=== PATIENT | female | born 2000 | race Caucasian/White ===

== ENCOUNTER 2024-09-07 08:34 | Observation (INO) ==
--- NOTE | 2024-09-01 12:32 | Anesthesiology Consultation ---
Date of Service September 01, 2024 Assessment & Plan (1) Encounter for pre-operative examination: - Check test AM DOS - Infectious disease screening: Per assessment on 09/01/24: No known recent infectious disease contacts or current infectious disease symptoms. Chart Review Chart Review: Acceptable Risk for Surgery and Patient NOT seen in Pre Admission Testing History Surgery Operation Date: 09/07/24 10:20 Proposed Procedures p Left Ankle Open Reduction Internal Fixation - Norman Gonzales MD Height/Weight Height: 5 ft 4 in Weight: 90.718 kg Allergies Allergy/AdvReac Type Severity Reaction Status Date / Time Sulfa (Sulfonamide Allergy Unknown Unknown Verified 09/01/24 11:21 Antibiotics) Medications Home Medications Medication Instructions Recorded Confirmed Last Taken acetaminophen 500 mg tablet 1,000 mg PO Q6H PRN Pain 09/01/24 09/01/24 Unknown (Acetaminophen Extra Strength) ibuprofen 200 mg tablet 600 mg PO Q6H PRN Pain 09/01/24 09/01/24 Unknown oxycodone 5 mg tablet 5 mg PO Q6H PRN Pain 09/01/24 09/01/24 Unknown Past Medical History Medical History (Updated 09/01/24 @ 12:30 by Fabby Yen) Closed fracture of ankle (08/29/24) Mechanical fall down wet stepts, no head traume Seasonal allergies Past Family History Family History (Updated 09/01/24 @ 11:28 by Janine Aden RN) Other No family history of adverse response to anesthesia Past Surgical History Surgical History (Updated 09/01/24 @ 12:30 by Fabby Yen) H/O wisdom tooth extraction (03/2024) History of anesthesia reaction (2011) Aspirated on vomit while having multiple baby teeth removed > "they stuck a tube down my throat and then I woke up in a hospital" History of open reduction and internal fixation (ORIF) procedure (2016) Right forearm (2 plates and [address]) History of tooth extraction (2011) Multiple baby teeth extraction Social History Smoking Status: Never smoker Do You Dip or Chew Tobacco: No Hx Alcohol Use: No Hx Substance Use: No substance use type: does not use
[~2024-09-07 08:34] MED LIST: ROPIVACAINE 0.5% 5 MG/ML 30 ML VIAL ONE
[2024-09-07] MEDS ORDERED: PROMETHAZINE HCL 6.25 MG in SODIUM CHLORIDE 0.9% 50 ML IV PRN (09:21)
[2024-09-07] MEDS ORDERED: fentaNYL citrate PF 100 MCG/2 ML VIAL IV PRN (09:21)
[2024-09-07] MEDS ORDERED: HYDROmorphone INJ 1 MG/ML SYRINGE IV PRN ×2 (09:21→16:44)
[2024-09-07] MEDS ORDERED: ONDANSETRON INJ 2 MG/ML 2 ML VIAL IV PRN (09:21)
[2024-09-07] MEDS ORDERED: ePHEDrine sulfate 50 MG/ML AMP IV PRN (09:21)
[2024-09-07] MEDS ORDERED: ATROPINE SULFATE 0.1 MG/ML 10ML SYR IV PRN (09:21)
[2024-09-07] MEDS: LR 15ML/HR IV SCH (09:38)
[2024-09-07] MEDS: LACTATED RINGER'S 1,000 ML IV SCH (09:38)
[2024-09-07] MEDS ORDERED: MIDAZOLAM HCL 1 MG/ML 2ML VIAL ONE ×2 (09:50→10:06)
[2024-09-07] MEDS ORDERED: fentaNYL citrate PF 100 MCG/2 ML VIAL ONE ×2 (09:50→11:36)
[2024-09-07] MEDS ORDERED: DexMEDEtomidine HCL IV 100 MCG/ML VIAL IV ONE (10:14)
--- NOTE | 2024-09-07 10:23 | History & Physical Bridge Note ---
Date of Service September 07, 2024 History & Physical Bridge Note I have examined the patient, reviewed the History & Physical and in the interval since the performance of the History & Physical I have noted the following changes of clinical significance: no changes noted
[2024-09-07] MEDS: ceFAZolin 2000MG 2,000 MG/15 ML SYR IV SCH ×2 (10:52→18:47)
[2024-09-07] MEDS ORDERED: ONDANSETRON INJ 2 MG/ML 2 ML VIAL ONE ×2 (11:33→14:00)
[2024-09-07] MEDS ORDERED: LIDOCAINE 2% 2 ML VIAL/AMP(20MG/ML) INFIL ONE (11:33)
[2024-09-07] MEDS ORDERED: PROPOFOL IV EMULSION 10 MG/ML 20 ML VIAL IV ONE (11:33)
[2024-09-07] MEDS ORDERED: DEXAMETHASONE SOD INJ 4 MG/ML VIAL ONE (11:33)
--- OUTSIDE RECORDS SUMMARY | 2024-09-07 12:25 | External Medical Summary | Continuity of Care Document ---
Author Name Unknown Organization [facility] [address] [id number] Address [address] [place], [place] [id number] Encounter [facility] FINNBR [id number] Date(s): 08/31/24 - 08/31/24 [facility] [address] [facility] [address] [facility] Medicine [address] [place] [address], [address] [address] Encounter Diagnosis Fracture dislocation of left ankle(Discharge Diagnosis) - 08/31/24 Bimalleolar fracture of left ankle(Discharge Diagnosis) - 08/31/24 Discharge Disposition: Home or Self Care Attending Physician: MD Gonzales Paul S Referring Physician: MD Gonzales Paul S Allergies, Adverse Reactions, Alerts Substance Criticality Severity Reaction Reaction Severity Status sulfa drugs unknown Active Medications oxyCODONE 5 mg oral tablet Start: 08/31/24 12:56:00 PM EDT, 1 tab, PO, q6h, Disp# 24 tab, Refills: 0, no more than 6 tabs/day, Note to Pharmacy: continued therapy, PRN: as needed for pain, Pharmacy: [id number] Start Date: 08/31/24 Status: Ordered oxyCODONE 5 mg oral tablet take 1 tablet by mouth every 6 hours Start Date: 08/30/24 Status: Ordered Mental Status 08/31/24 Barriers to Learning one year None evide nt Mandatory Health Literacy Documentation Yes Health Literacy Communication Barriers N ever Primary Language Uzbek Problem List Condition Confirmation Course Effective Dates Status Health St [facility] Informant Fracture dislocation of left ankle Confirmed Active Diagnosis Diagnosis Type Effective Dates Health Status Clinical Service Informant Fracture dislocation of left ankle Discharge Diagnosis 08/31/24 Non-Specified Bimalleolar fracture of left ankle Discharge Diagnosis 08/31/24 Non-Specified Vital Signs Most recent to oldest [Reference Range]: 1 Height 163 cm (08/31/24 12:21 PM) Patient Weight 92 kg (08/31/24 12:21 PM) Body Mass Index 34.63 kg/m2 (08/31/24 12:21 PM) Temperature [36.5-37.9 DegC] 36.6 DegC (08/31/24 12:21 PM) Heart Rate 70 bpm (08/31/24 12:21 PM) Blood Pressure 110/60mmHg (08/31/24 12:21 PM) Cuff Pulse Pressure 50 mmHg (08/31/24 12:21 PM) Social History Social History Type Response Smoking Status Never smoked cigaret gonsalo Sex Sex Representation Female (finding) Pre-OP H & P * RENITA Ponce, Anamaria Sandoval: PERFORM Event Display: Pre-OP H & P Authored Date: [id number] Name:JERIRCA SERRATO Patient Number:[id number] :2000 Date of Service:08/31/2024 Chief Complaint L ankle f/u History of Present Illness [id number] yearPastor presents today forleft ankle injury. She was walking a dog on 08/29/2024 at nightwhen she slipped and fell down a single wet stair. She has sprained her right ankle previously, but she has not injured her left ankle previously. She heard a snapping sound as soon as she fell and had pain immediately. She was put into a splint, and has had trouble sleeping due to her pain. She is unable to weight bear on her left leg. She went immediately to the emergency room. She was found to have a left ankle fracture dislocation under conscious sedation underwent a reduction. She has been in a posterior and sugar-tong splint. A CT scan was performed and she was found to have a trimalleolar left ankle fracture. Due to these findings surgical invention was recommended. She agrees to proceed with surgery and she is scheduled for an open reduction internal fixation of her left ankle fracture with Dr. Gonzales on September 07, 2024. Review of Systems Denies any recent cough, cold, fevers, chills or flulike symptoms. She doesget acough occasionally with seasonal allergies.She denies any lightheadedness, dizziness, syncopal episodes, headaches, migraines or seizures. Denies any bleeding or clotting disorders or history of DVT or pulmonary embolism. Denies any recent hospitalizations. Denies any history of metal sensitivity, latex allergy or MRSA. Denies any shortness of breath or chest pain. Denies abdominal pain, heartburn, indigestion, nausea, vomiting, diarrhea or constipation. Denies any urinary tract infections. Denies any hearing or vision changes. Denies any dental problems. Physical Exam Vitals & Measurements T:36.6C HR:70(Monitored) BP:110/60 SpO2:98% HT:163cm WT:92.000kg(Dosing) WT:92kg BMI:34.63 BMI:34.63 kg/m2 Vitals:Last Updated 08/31/24 12:21 Date Temp BP Location Pulse RR SpO2 Pain 08/31/24 36.6 110/60 70 98 08/31/24 2 08/30/24 7 Height and Weight:Last Updated 08/31/24 12:21 Date BMI Wt(kg) Wt(lb) Method Ht(cm) (ft-in) Method 08/31/24 34.63 92 202 Standing Scale 163 5-4 General:Well-dressed, well-nourished. Normal mood and affect. Alert and oriented x3. HEENT:Head: Atraumatic, normocephalic. Eyes: Extraocular movements intact, pupils equal round and reactive to light, sclera normal. Ears: Ears grossly normal, TMs are clear normal light reflex.Nose: Nares are patent bilaterally. Throat: Oropharynx clear mucous membranes moist good dentition uvula midline. Neck:Supple, no lymphadenopathy, nontender palpation, full range of motion. Cardiac:Regular rate and rhythm, normal S1, S2. No murmurs, rubs or gallops appreciated. Lungs:Clear to auscultation bilaterally. No adventitious sounds. No accessory muscle use. Abdomen:Soft, nontender, nondistended, normal bowel sounds heard in all 4 quadrants. Extremities: Focusing on the patient'sLEFTlower extremity: Numbness on the dorsal aspect of the big toe, otherwise intact sensation Unable to activate dorsiflexion orplantarflexion Faintly able to extend toes Achilles intact 1+DP and1+PT pulses Tenderness on the lateral border of the foot No blistering Swelling is mild to moderate, mostly lateral Bruising into the lateral foot Anteromedial abrasion 1cm in diameter. Diagnostic Results I reviewed 2 views of the left ankle and tib fib pre and post reduction done at [facility] on 08/29/2024 which shows a fracture of the fibula and the back of the tibia, and another tibia fracture. Trimalleolar ankle fracture. CT foot LT wo con, CT ankle LT wo con IMPRESSION: Trimalleolar fractures are seen. There is surrounding soft tissue stranding. Assessment/Plan 1.Fracture dislocation of left ankle 2.Bimalleolar fracture of left ankle Patient is scheduled for an open reduction internal fixation of her left ankle fracture with Dr. Gonzales on 09/07/2024. Risks and complications of the procedure were explained to the patient and include but are not limited to infection, pain, bleeding, scarring, nerve and blood vessel damage, wound problems, weakness, stiffness, incomplete relief of symptoms, hardware failure, malunion, nonunion, arthritis, blood clots, embolisms, heart attack, stroke and . All questions were answeredand informed consent was obtained. She does not need any preoperative laboratory work, EKG or medical clearance prior to surgery. She most likely will stay overnight at [facility] for observation. She has crutches and was also given a prescription for a knee scooter for postoperative use. Encouraged ice and elevation frequently until surgery. She needs to remain nonweightbearing left lower extremity. She was given a prescription for oxycodone for pain. She is actually been taking this consistently and needed a refill prior to surgery. She most likely will need a refill at time of discharge from the hospital. She will be out of work for 6 to 12 weeks aftersurgery. A note was provided today. She will follow-up 5 to 7 days after her procedure for dressing change. She would like to attend outpatient physical therapy closer to home. All questions were answered today. She knows to call with any further problems, questions or concerns. This chart was completed utilizing [employer] voice recognition software. Grammatical errors, random word insertions, pronoun errors, and in complete sentences are an occasional consequence of the system. Any questions or concerns about the content, text, or information contained within the body of this dictation should be addressed directly to the provider for clarification. Problem List/Past Medical History Ongoing Fracture dislocation of left ankle Seasonal allergies Seasonal depression Procedure/Surgical History ORIF Right forearm Stafford teeth Medications Home oxyCODONE(oxyCODONE 5 mg oral tablet), 5 mg= 1 tab, PO, q6h, PRN Tylenol PRN Advil PRN Allergies sulfa drugsunknown Social History Denies any tobacco, alcohol or recreational drug use. She is employed full- time. She is going to live with her mom during her recovery. She does have crutches for use after surgery. Family History Reviewed and noncontributory. Electronic Signature on File Electronically Reviewed/Signed by: Anamaria Ponce PA-C Author Signature Dt/Tm:08/31/2024 01:28PM Division of Sports Medicine Electronically Reviewed/Signed by: Norman Gonzales MD Cosigner Signature Dt/Tm: 08/31/2024 04:06 PM Division of Sports Medicine [facility] Ortho Outpt Note * Stephanietasha Yanet: PERFORM, MODIFY MD Janet, Norman Ochoa: MODIFY Event Display: Ortho Outpt Note Authored Date: [id number] Name:JERRICA SERRATO Patient Number:[id number] :2000 Date of Service:08/31/2024 CHIEF COMPLAINT: Follow-up left ankle injury and CT review HPI: [id number] Norris presents today forcontinued evaluation ofher left ankle. Patient initially injured her ankle on 08/29/2024 during a slip and fall. She does have numbness in her big toe. She has remained nonweightbearing and elevates and ices for swelling and pain. She is taking oxycodone for pain DIAGNOSTIC REVIEW: Review of CT scan of the leftfoot was negative for fracture. CT scan of the left ankle which shows a fibular fracture, posterior malleolar fracture with a small comminuted fragment and extends intothe medial malleolar in the coronal plane. IMPRESSION: Left ankle bimalleolar fracture and fracture dislocation PLAN: Recommend surgery which would include internal fixation. Discussed risks, benefits, procedure, and rehabilitation. Surgical consent obtained for displacedleft ankle bimalleolar fracture open reduction and internal fixation. Current plan for surgery on 09/07/2024 at [facility]. Continue nonweightbearing, elevate for swelling as this may postpone surgery Follow-up as scheduled for surgery and post-operative appointments. Discussed postoperative plan.May include nonweightbearing. Discussed possible syndesmotic fixation. ATTESTATION: IYanet, scribing for and in the presence of, Norman Gonzales, on this date,1:57:32. Electronic Signature on File Electronically Reviewed/Signed by: Yanet Shanks Author Signature Dt/Tm:08/31/2024 12:43 PM Electronically Reviewed/Signed by: Norman Gonzales MD Cosigner Signature Dt/Tm: 08/31/2024 04:10 PM Division of Sports Medicine [place]
--- OUTSIDE RECORDS SUMMARY | 2024-09-07 12:25 | External Medical Summary | Continuity of Care Document ---
Author Name Unknown Organization [facility] [address] [id number] Address [address] [place], [place] [id number] Encounter [facility] FINNBR [id number] Date(s): 08/30/24 - 08/30/24 [facility] [address] [facility] [address] [facility] Sports Medicine [address] [place] [address], [address] [address] Encounter Diagnosis Fracture dislocation of left ankle(Discharge Diagnosis) - 08/30/24 Discharge Disposition: Home or Self Care Attending Physician: MD Gonzales Paul S Allergies, Adverse Reactions, Alerts Substance Criticality Severity Reaction Reaction Severity Status sulfa drugs unknown Active Assessment and Plan Extracted from: Title:Norman Gonzales Author:Serjio Gonzalez te:08/30/24 IMPRESSION: 24 year old fema le with possibletrimalleolar ankle fracturedislocation PLAN: CT scan of the foot and ankle was ordered for the patient. RICE. Foot above heart, ice 10-15 minutes. Remain nonweightbearing. The patient has elected to proceed with surgical interventionat this time, which will most likely be this Friday or next week. Patient was educated about surgical procedure, and treatment options were discussed, as well as risks, benefits and the recovery process. The patient hasno issues withbleeding, blood clots, staph infections or MRSA. We can discuss the patient's surgery timeline more after she gets her CT scan. Follow up after the CT scan is completed. Medications oxyCODONE 5 mg oral tablet Start: 08/31/24 12:56:00 PM EDT, 1 tab, PO, q6h, Disp# 24 tab, Refills: 0, no more than 6 tabs/day, Note to Pharmacy: continued therapy, PRN: as needed for pain, Pharmacy: [id number] Start Date: 08/31/24 Status: Ordered oxyCODONE 5 mg oral tablet take 1 tablet by mouth every 6 hours Start Date: 08/30/24 Status: Ordered Mental Status 08/30/24 Barriers to Learning one year None evide nt Mandatory Health Literacy Documentation Yes Health Literacy Communication Barriers N ever Primary Language German Problem List Condition Confirmation Course Effective Dates Status Health St [facility] Informant Fracture dislocation of left ankle Confirmed Active Diagnosis Diagnosis Type Effective Dates Health Status Clinical Service Informant Fracture dislocation of left ankle Discharge Diagnosis 08/30/24 Non-Specified Social History Social History Type Response Smoking Status Never smoked cigaret gonsalo Sex Sex Representation Female (finding) Ortho Outpt Note * Serjio Gonzalez: PERFORM, MODIFY, MODIFY MD Janet, Norman Ochoa: MODIFY Event Display: Ortho Outpt Note Authored Date: [id number] Chief Complaint Left ankle injury History of Present Illness [id number] yearoldFemalewho presents today forleft ankle injury. She was [...] had trouble sleeping due to her pain. Review of Systems A 14 point review of systems is available in the EMR. Physical Exam Focusing on the patient'sLEFTlower extremity: Calf nontender. Tenderness of thelateral ankle. Numbness on the dorsal aspect of the big toe, otherwise intact sensation Unable to activateankle dorsiflexion orplantarflexion Faintly able to flexandextend toes Achilles intactpalpably 1+DP and1+PT pulses Tenderness on the lateral border of the foot No blistering Swelling is mild to moderate, mostly lateralankle Bruising into the lateral foot Anteromedial abrasion 1cm in diameter. Diagnostic Results I reviewed 2 views of the left ankle and tib fib pre and post reduction done at [facility] on 08/29/2024 which shows a fracture of the fibula and the back of the tibia, and another tibia fracture. Trimalleolar ankle fracture. Posterior subluxation Assessment/Plan IMPRESSION: 24 year old female with possibletrimalleolar ankle fracturedislocation PLAN: CT scan of the foot and ankle was ordered for the patient. Foot above heart, ice 10-15 minutes. Remain nonweightbearing. The patient has elected to proceed with surgical interventionat this time, which will most likelybe this Friday or next week. Patient was educated about surgical procedure, and treatment options were discussed, as well as risks, benefits and the recovery process. The patient hasno issues withbleeding, blood clots, staph infections or MRSA. We can discuss the patient's surgery timeline more after she gets her CT scan. Follow up after the CT scan is completed. Attestation I, Serjio Gonzalez, have scribed for, and in the presence of, Norman Gonzales, on this date,08/30/2024 11:24:20. Recommendations Health Maintenance Pending(in the next year) OverDue Adult Influenza Vaccine due05/30/24and every 1year Due Adult Folic Acid Supplementation due08/30/24and every 3year Satisfied(in the past 1 year) There are no satisfied recommendations within the defined date range Electronic Signature on File Electronically Reviewed/Signed by: Serjio Gonzalez Author Signature Dt/Tm:08/30/2024 12:06 PM Electronically Reviewed/Signed by: Norman Gonzales MD Cosigner Signature Dt/Tm: 08/31/2024 04:28 PM Division of Sports Medicine [place]
--- OUTSIDE RECORDS SUMMARY | 2024-09-07 12:25 | External Medical Summary | Continuity of Care Document ---
Author Name Unknown Organization [facility] [address] [id number] Address [address] [place], [place] [id number] Encounter [facility] [id number] Date(s): 08/30/24 - 08/30/24 [facility] [address] [facility] [address] [facility] Sports Medicine [address] [place] [address], [address] [address] Encounter Diagnosis Fracture dislocation of left ankle(Discharge Diagnosis) - 08/30/24 Discharge Disposition: Home or Self Care Attending Physician: RENITA Ponce Jennifer R Allergies, Adverse Reactions, Alerts Substance Criticality Severity Reaction Reaction Severity Status sulfa drugs unknown Active Assessment and Plan Extracted from: Title:Clinical Document Author:RENITA Ponce, Warren Sandoval Date:08/30/24 ORTHOPAEDICS OUTPATIENT NOTE Name: JERRICA SERRATO Patient Number: [id number] : 2000 Date of Service: 08/30/2024 HPI: Patient was seen and evaluated today by Dr. Gonzales. Please see his note from today for further details regarding today's visit. I was asked to place her in a posterior and sugar-tong splint of her left lower extremity. A fiberglass splint was applied. Well-padded. Instructed to keep it on at all times and clean and dry. Nonweightbearing left lower extremity. Continue use of crutches and/or wheelchair. Follow-up as instructed by Dr. Goznales. She understands and agrees with the plan. Medications oxyCODONE 5 mg oral tablet Start: 08/31/24 12:56:00 PM EDT, 1 tab, PO, q6h, Disp# 24 tab, Refills: 0, no more than 6 tabs/day, Note to Pharmacy: continued therapy, PRN: as needed for pain, Pharmacy: [facility] #[id number] Start Date: 08/31/24 Status: Ordered oxyCODONE 5 mg oral tablet take 1 tablet by mouth every 6 hours Start Date: 08/30/24 Status: Ordered Problem List Condition Confirmation Course Effective Dates Status Health St [facility] Informant Fracture dislocation of left ankle Confirmed Active Diagnosis Diagnosis Type Effective Dates Health Status Clinical Service Informant Fracture dislocation of left ankle Discharge Diagnosis 08/30/24 Social History Social History Type Response Smoking Status Never smoked cigaret gonsalo Sex Sex Representation Female (finding) Ortho Outpt Note * RENITA Ponce, Anamaria Sandoval: PERFORM Event Display: Ortho Outpt Note Authored Date: [id number] ORTHOPAEDICS OUTPATIENT NOTE Name: JERRICA SERRATO Patient Number: [id number] : 2000 Date of Service: 08/30/2024 HPI: Patient was seen and evaluated today by Dr. Gonzales. Please see his note from today for further details regarding today's visit. I was asked to place her in a posterior and sugar-tong splint of her left lower extremity. A fiberglass splint was applied. Well-padded. Instructed to keep it on at all times and clean and dry. Nonweightbearing left lower extremity. Continue use of crutches and/or wheelchair. Follow-up as instructed by Dr. Gonzales. She understands and agrees with the plan. Electronic Signature on File Electronically Reviewed/Signed by: Anamaria Ponce PA-C Author Signature Dt/Tm:08/30/2024 02:56PM Division of Sports Medicine Electronically Reviewed/Signed by: Norman Gonzales MD Cosigner Signature Dt/Tm: 08/30/2024 05:40 PM Division of Sports Medicine [facility]
[2024-09-07] MEDS ORDERED: HYDROmorphone INJ 2 MG/ML SYR/VIAL ONE (12:51)
[2024-09-07] MEDS ORDERED: KETOROLAC 30 MG/ML VIAL ONE (12:51)
[2024-09-07] MEDS ORDERED: NEOSTIGMINE METHYLSULFATE 1 MG/ML 10ML VIAL ONE (14:04)
[2024-09-07] MEDS ORDERED: GLYCOPYRROLATE 0.2 MG/ML VIAL ONE (14:04)
[2024-09-07] MEDS: VANCOMYCIN HCL 1000MG/20ML VIAL ONE (14:17)
[2024-09-07] MEDS ORDERED: DROPERIDOL 5 MG/2 ML VIAL ONE (14:28)
--- NOTE | 2024-09-07 14:37 | Operative Report ---
Post Operative Report Pre & Post Diagnosis Operation Date: 09/07/24 10:20 Pre-Op Diagnosis: Displaced Bimalleolar Fracture of Left Lower Leg, Lateral and posterior malleolus Post-Op Diagnosis: Same I identified the patient and participated in the time-out.: Yes Procedure Operation Date: 09/07/24 10:20 Actual Procedures p Left Ankle Open Reduction Internal Fixation of Lateral and Posterior Fracture(Left) - Norman Gonzales MD Surgeon Norman Gonzales MD Cutting Table Operator First Tom White DO, fellow. Anamaria Ponce physicians video library assistant Estimated Blood Loss 5 Findings Consistent with Post-Op Diagnosis Specimens None Anesthesia Type General Regional Complications none Disposition Accompanied Patient To Recovery: No Disposition: Recovery Room Indications Mera is 24 years old. Approximately 8 days ago she fell and injured her left ankle. She has a displaced distal fibular fracture. Bright B type. There is also a large posterior malleoli are fracture which extends across to the medial malleolus. Surgical treatment consisting of ORIF was recommended and she agreed to proceed. Description of Procedure Informed consent. Patient identified. She identified the procedure site as the left ankle. I marked with my initials. A preoperative surgical timeout performed. A preop dose of IV antibiotics was given. She was taken to the operating room positioned prone after administration of the anesthetic. A tourniquet was applied to the left thigh. Chest rolls were utilized. The arms were held in physiologic abduction with the elbows below the level of the shoulders bony prominences were inspected and padded. The operative leg was elevated in hip extension with several blankets and then the foot was positioned on bone foam. The leg was shaved and then prescrubbed and then prepped and draped in the usual sterile fashion. DVT prophylaxis with mechanical devices intraoperatively. Postoperatively mobility aspirin and mechanical devices. When in the holding area the leg was inspected and found to have skin wrinkles. Yellowish bruising. Moderate swelling but no blistering. There was a petechial hemorrhagic type rash over the lateral foot. Fluoroscopic guidance was utilized about surgical procedure Limb exsanguinated with the Esmarch. Tourniquet inflated to 250 mmHg. Approximate 15 cm incision was made at the posterior border of the fibula. The skin was sharply incised and blunt dissection was utilized to elevate down into the subcutaneous tissues. Full-thickness flap was created elevating anterior to the level of the anterior fibula. Hemorrhage was noted. Subperiosteal exposure of the distal fibula was performed. The fracture site was opened cleaned of hematoma and reduced with a alligator clamp. I then incised the fascia just posterior to the peroneal musculature. This gained access to the posterior compartment. Perforating vessels were electrocauterized. I then incised the deep fascia longitudinally and then identified the flexor hallucis longus muscle. The posterior tibia was palpated and the FHL was elevated up off of the posterior tibia. Retractors were inserted taking care to be on bone. [employer] and [employer]. The fracture was identified. The periosteum was then incised and the fracture margins were exposed. The fracture was fixed displaced slightly posterior and slightly proximal. I dissected over to the medial extent of the fracture which was more proximal. I used a dental pick and dorsiflexion of the ankle to manipulate the fracture back into anatomical alignment and held it there with a K wire. Fluoroscopic images were then obtained to demonstrate the alignment and reduction which was anatomic. I then took a 3 hole nonlocking plate and positioned it on the posterior tibia. The plate was flipped upside down to have the appropriate trajectory for inserting screws. A guidepin was inserted distally and laterally. An additional guidewire was placed proximally to hold the plate in position. Care was taken at all times with retraction. There was a large soft tissue envelope to retract posteromedially to gain access. Soft tissues were kept moist throughout the surgical procedure. Guidepin was found to be in good position parallel to the joint and outside of it. It was advanced to the far cortex. A 3.5 mm bicortical screw was inserted in the middle hole of the shaft to approximate the plate to the bone. This provided compression through the plate. It was later exchanged for a shorter screw. A 3.5 mm cannulated screw 2 mm less than what was measured was then inserted after over drilling the near cortex. A second 3.5 mm cannulated screw was inserted medially. Multiplanar fluoroscopy was utilized to assess position of plate and screws. An additional bicortical 3.5 millimeter screw was inserted in the proximal hole of the plate. The articular surface was anatomic the plate was in good position. I then turned my attention to the fibula. The knee was flexed and a lag screw was inserted from proximal anterior to distal posterior across the fracture site. A 3.5 mm bicortical lag screw. Good purchase and stability. This was then neutralized with an 8 hole one third tubular locking plate. It was pre- bent and then affixed to the shaft of the fibula proximally with a cortical screw. 2 unicortical screws were inserted distally. 2 bicortical screws were inserted proximally. Fluoroscopic images confirmed anatomical alignment and positioning of the hardware. The syndesmosis was stressed and found to be stable. The posterior inferior tibiofibular ligaments were visualized to the posterior approach and they were found to be intact. The sural nerve was not encountered. The tourniquet was let down during the fixation of the distal fibula. Meticulous hemostasis was performed. A gram of vancomycin was split equally between the posterior lateral portions. Prior to that copious irrigation was performed. The muscles were allowed to close over posteriorly. On the lateral side the distal half of the plate was covered over with periosteum using 0 Vicryl. The skin was then closed with 3-0 Vicryl and telma. The leg was cleaned wet and dry sponges a saw sterile dressing was applied Xeroform 4 x 4's ABD soft wrap and a posterior splint with ankle neutral position. Patient was then awakened from anesthesia without difficulty and taken back to the recovery room in stable condition. There were no specimens or complications. Counts were correct and blood loss is estimated to be 5 cc. At the conclusion of the operation I spoke the patient's mother informed her my findings. Postop instructions were discussed. She will be admitted to the hospital and stay overnight. She will have PT. Postop antibiotics. Aspirin for DVT prophylaxis. She will be nonweightbearing on the injured limb for at least 6 weeks. On the fluoroscopic image there was a subtle minimal double density sign on the medial malleolus. The ankle mortise and syndesmosis were intact. I attest to the content of the Intraoperative Record and any orders documented therein. Any exceptions are noted below.
--- NOTE | 2024-09-07 14:46 | Operative Report ---
Post Operative Report Pre & Post Diagnosis Operation Date: 09/07/24 10:20 Pre-Op Diagnosis: Displaced Bimalleolar Fracture of Left Lower Leg Post-Op Diagnosis: Displaced Bimalleolar Fracture of Left Lower Leg I identified the patient and participated in the time-out.: Yes Procedure Operation Date: 09/07/24 10:20 Actual Procedures p Left Ankle Open Reduction Internal Fixation of Lateral and Posterior Bimalleolar Fracture(Left) - Norman Gonzales MD Surgeon Norman Gonzales MD Landscape Supervisor Tom White DO, fellow. Anamaria Ponce physicians malt specifications control assistant Estimated Blood Loss 5 Findings Consistent with Post-Op Diagnosis Specimens None Description of Procedure Patient was brought to the operative suite she was placed in the prone position after undergoing anesthesia. Left lower extremity was prepped and draped in usual sterile fashion. A surgical timeout was performed. Patient underwent left ankle open reduction internal fixation, please see Dr. Gonzales's operative report for full details. I was present assisted with limb positioning, soft tissue retraction, hardware placement, wound closure, postoperative dressing and splint placement. Patient was awakened and taken to the recovery room in stable condition. I attest to the content of the Intraoperative Record and any orders documented therein. Any exceptions are noted below.
--- NOTE | 2024-09-07 14:48 | Fluoroscopy Report ---
INTRAOPERATIVE RADIOGRAPHS CLINICAL HISTORY: Open reduction and internal fixation of left ankle fractures. Fluoro time: 70 seconds Ka,r: 1.36 mGy FINDINGS: 5 spot fluoroscopic views of the left ankle are correlated with radiographs dated 08/29/2024 . There has been buttress plate fixation of a comminuted fracture of the distal fibula, as well as bu ttress plate fixation along the dorsal aspect of the distal tibia transfixing a posterior malleolar f racture. Numerous cortical lag screw transfix both buttress plates. The orthopedic hardware appears i ntact. Near-anatomic alignment is restored. Overlying soft tissue edema is noted. IMPRESSION: Intraoperative images from open reduction and internal fixation of distal tibial and fibu lar fractures. Electronically signed by: Durga Carrillo M.D. 09/07/2024 2:47 PM
--- NOTE | 2024-09-07 15:43 | Anesthesiology Progress Note ---
Date of Service September 07, 2024 Anesthesia Post Procedure Vital Signs Vital Signs: Temp Pulse Resp BP Pulse Ox O2 Del Method O2 Flow Rate 09/07/24 15:25 80 12 118/76 96 Oxymask 4 09/07/24 15:15 93 H 15 141/79 H 98 Oxymask 4 09/07/24 15:05 70 12 110/67 99 Oxymask 6 09/07/24 14:55 85 12 111/55 L 99 Oxymask 6 09/07/24 14:48 36.2 C L 73 13 118/62 99 Oxymask 10 09/07/24 09:16 36.8 C 109 H 20 135/82 97 Room Air Pain Intensity Left Ankle: Pain Intensity: 3 Transfer of Care Handoff Completed per policy Notes Mental Status: alert / awake / arousable and participated in evaluation Patient Amnestic to Procedure: Yes Nausea / Vomiting: adequately controlled Pain: adequately controlled Airway Patency, RR, SpO2: stable & adequate BP & HR: stable & adequate Hydration State: stable & adequate Anesthetic Complications: no major complications apparent and Pt Satisfied with anesthetic care
[2024-09-07] MEDS ORDERED: HYDROmorphone INJ 0.5 MG/0.5 ML SYR IV PRN (16:44)
[2024-09-07] MEDS ORDERED: METOCLOPRAMIDE HCL INJ 5 MG/ML 2 ML VIAL IV PRN (16:44)
[2024-09-07] MEDS ORDERED: oxyCODONE HCL IR 5 MG TAB (IMMEDIATE RELEASE) PO PRN (16:44)
[2024-09-07] MEDS ORDERED: NALOXONE HCL 0.4 MG/1 ML VIAL/CARP IV PRN (16:44)
[2024-09-07] MEDS ORDERED: MAGNESIUM HYDROXIDE SUSP 30 ML UDC PO PRN (16:44)
[2024-09-07] MEDS ORDERED: bisacodyL 10 MG SUPP PR PRN (16:44)
[2024-09-07] MEDS ORDERED: diphenhydrAMINE 50 MG/ML VIAL IV PRN (16:44)
[2024-09-07] MEDS: SODIUM CHLORIDE 0.9% 1,000 ML IV SCH (16:56)
--- NOTE | 2024-09-07 18:12 | Orthopedic Progress Note ---
Date of Service September 07, 2024 Assessment & Plan (1) Ankle fracture, bimalleolar, closed: Plan: Findings discussed. The nerve block is still working. Her circulation is intact. Do not bear weight. Elevate the leg. We discussed the pain control regimen. Admission and Anticipated Discharge Date Admission Date: September 07, 2024 Subjective Doing well. The block is still working. Her foot is still numb. Results of surgery discussed Physical Exam Physical Exam: She can faintly wiggle her toes. Capillary refills less than 2 seconds. The foot is numb throughout. DP pulses 1+ Results & Data Vital Signs (Past 12 Hours) Vital Signs Temp Pulse Pulse Resp BP Pulse Ox O2 Del Method 09/07/24 17:41 36.9 C 90 14 115/74 95 Room Air 09/07/24 17:14 37 C 104 H 17 121/78 94 Room Air 09/07/24 16:45 37.5 C 108 H 17 122/81 93 Room Air 09/07/24 16:15 97 H 116/72 95 Room Air 09/07/24 16:00 97 H 15 118/73 93 Room Air 09/07/24 15:45 37.3 C 94 H 14 125/76 93 Room Air 09/07/24 15:35 97 H 16 130/80 93 Room Air 09/07/24 15:25 80 12 118/76 96 Oxymask 09/07/24 15:15 93 H 15 141/79 H 98 Oxymask 09/07/24 15:05 70 12 110/67 99 Oxymask 09/07/24 14:55 85 12 111/55 L 99 Oxymask 09/07/24 14:48 36.2 C L 73 13 118/62 99 Oxymask 09/07/24 09:16 36.8 C 109 H 20 135/82 97 Room Air O2 Flow Rate 09/07/24 17:41 09/07/24 17:14 09/07/24 16:45 09/07/24 16:15 09/07/24 16:00 09/07/24 15:45 09/07/24 15:35 09/07/24 15:25 4 09/07/24 15:15 4 09/07/24 15:05 6 09/07/24 14:55 6 09/07/24 14:48 10 09/07/24 09:16
[2024-09-07] MEDS: SENNA 8.6 MG TAB PO SCH (21:29)
[2024-09-07] MEDS: DOCUSATE SODIUM 100 MG CAP PO SCH (21:29)
[2024-09-07] MEDS: ACETAMINOPHEN 500 MG TAB PO SCH (21:29)
[2024-09-07] MEDS: ACETAMINOPHEN 1,000 MG/100 ML VIAL IV PRN (23:09)
[2024-09-08] MEDS: ONDANSETRON INJ 2 MG/ML 2 ML VIAL IV PRN (02:35)
[2024-09-08 07:16] VITALS: BP 106/71; PULSE 82; RESP 18; TEMP 97.9; O2SAT 96
[2024-09-08] MEDS: ASPIRIN 325 MG ECTAB PO SCH (08:40)
[2024-09-08] MEDS: MULTIVITAMIN TAB PO SCH (08:40)
--- NOTE | 2024-09-08 10:13 | Orthopedic Progress Note ---
Date of Service September 08, 2024 Assessment & Plan (1) Ankle fracture, bimalleolar, closed: Plan: Patient is status post open reduction internal fixation of her left ankle fracture with Dr. Gonzales on 09/08/2024. She may be out of bed with the assistance of a walker or crutches. Nonweightbearing left lower extremity at all times. Encouraged ice to left ankle as needed for pain and swelling. Encouraged elevation above heart to relieve pain and swelling. Regular diet has been ordered and she is tolerating this well. Aspirin 325 mg was started today for DVT prophylaxis. Mom states she is unable to swallow pills very well so we will change that as an outpatient to a baby aspirin chewable tablet twice daily. Oxycodone as needed for pain. She does have medicine at home. Follow-up as scheduled as an outpatient for dressing change in the next 3 to 5 days as scheduled. Call with any problems, questions or concerns. Discharge instructions were reviewed and all questions were answered today. Plan to discharge to home today. Admission and Anticipated Discharge Date Admission Date: September 07, 2024 Subjective Patient is resting in bed. No significant pain of her left ankle. She is elevated on 3-4 pillows. She states that the splint does not feel too tight. She would like to go home today and get into her "own bed". She does feel that the toes and foot are still numb and tingly. Physical Exam Musculoskeletal: Exam of her left lower extremity: Dr. Gonzales present for today's visit. The left leg is elevated on 3-4 pillows. The splint is clean, dry and intact. Her toes are not edematous. She is able to gently flex her toes but not able to extend. She is unable to extend her ankle. She has diminished sensation across the dorsum of her foot. Mild edema of the midfoot. Dorsalis pedis pulse is not palpable today but it is dopplerable. The foot is warm. There is discoloration from the cleansing agent use preoperatively. Capillary refill is brisk. Results & Data Vital Signs (Past 12 Hours) Vital Signs Temp Pulse Resp BP Pulse Ox O2 Del Method 09/08/24 07:16 36.6 C 82 18 106/71 96 Room Air 09/08/24 03:53 36.7 C 102 H 16 101/65 98 Room Air 09/07/24 23:14 36.7 C 101 H 16 114/76 97 Room Air Diagnostic Findings Intraoperative x-rays were reviewed with the patient. Shows a well aligned fractures and intact hardware.
--- NOTE | 2024-09-08 10:17 | Discharge Summary ---
Date of Service September 08, 2024 Discharge Data Procedures Performed Operation Date: 09/07/24 10:20 Actual Procedures p Left Ankle Open Reduction Internal Fixation of Lateral and Posterior Bimalleolar Fracture(Left) - Norman Gonzales MD Hospital Course (1) Ankle fracture, bimalleolar, closed: Patient was kept in observation at [facility] after undergoing an elective open reduction internal fixation of her left ankle fracture with Dr. Gonzales on September 07, 2004. Her surgery was performed with general anesthesia and a peripheral nerve block. She tolerated the procedure well without any intraoperative complications. Intraoperative x-ray showed good alignment of the fracture and reduction with intact hardware without any complications. She was allowed out of bed, nonweightbearing on her left lower extremity at all times. Use crutches or walker to assist with ambulation. She was placed in a posterior splint which was left in place. Regular diet was provided. Her home medications were continued and she was given Tylenol, oxycodone and IV Dilaudid to use for postoperative pain control. We did switch to IV Tylenol because she had trouble swallowing Tylenol tablets. She was started on aspirin 325 mg on postoperative day 1 for DVT prophylaxis. This will be switched to a chewable aspirin 81 mg tablet twice a day at discharge. Encouraged ice and elevation. Encouraged her to do range of motion of her knee, hip and toes as tolerated. She was seen and evaluated by physical therapy and Occupational Therapy. She was deemed safe for discharge to home. She was discharged to her home in stable condition on September 07, 2024. Discharge instructions were reviewed. Follow-up appointment as scheduled. All questions were answered today.
== END 2024-09-08 11:48 | disposition home or self-care (01) ==
LOC: ASU 08:34 → 3W 08:34
DX: F41.9 Anxiety disorder, unspecified; Y93.K1 Activity, walking an animal; W10.9XXA Fall (on) (from) unspecified stairs and steps, initial encounter; S82.842A Displaced bimalleolar fracture of left lower leg, initial encounter for closed fracture; Z88.2 Allergy status to sulfonamides

== ENCOUNTER 2025-08-30 07:32 | Inpatient (IN) ==
[2025-08-30] MEDS ORDERED: OXYTOCIN 30 UNITS/NSS 30 UNITS/500 ML BAG IV PRN (08:01)
[2025-08-30] MEDS ORDERED: LIDOCAINE 1% LOCAL 20 ML VIAL INFIL PRN (08:01)
[2025-08-30 08:45] LABS: Hematocrit (blood only) 34.3 % (37.0-47.0); Hemoglobin 11.3 g/dl (12.0-16.0); Mean Corpuscular Hemoglobin 25.6 pg (25.0-34.0); Mean Corpuscular Volume 77.8 fL (80.0-100.0); Platelet Count 146 K/uL (130-400); RDW Standard Deviation 45.9 fL (36.4-46.3); Red Blood Count 4.41 M/uL (4.20-5.40); White Blood Count 10.45 K/ul (4.8-10.8)
--- NOTE | 2025-08-30 10:42 | History & Physical Report ---
Date of Service August 30, 2025 Assessment & Plan (1) Post-dates : Plan: Cervical ripening with Cervidil planned Admission and Anticipated Discharge Date Admission Date: August 30, 2025 History of Present Illness Chief Complaint: induction of labor Primary Care Provider: Norman Leiva MD 25 F P0000 at 40.2 weeks admitted for induction of labor for post-dates. GBS is negative. Allergies Allergy/AdvReac Type Severity Reaction Status Date / Time Sulfa (Sulfonamide Allergy Unknown Unknown Verified 08/07/25 16:20 Antibiotics) latex AdvReac Rash Verified 08/07/25 16:21 Home Medications Medication Instructions Recorded Confirmed Type prenat.vits,riana,dod-xqer-chudg 1 tab PO DAILY 08/07/25 08/30/25 History vitamin P77-bqsom acid 2.5 mg-0.8 1 tab PO DAILY 08/07/25 08/30/25 History mg oral sublingual tablet Patient History Medical History Seasonal allergies Closed fracture of ankle (08/29/24) Mechanical fall down wet stepts, no head traume Surgical History History of anesthesia reaction (2011) Aspirated on vomit while having multiple baby teeth removed > "they stuck a tube down my throat and then I woke up in a hospital" History of tooth extraction (2011) Multiple baby teeth extraction History of open reduction and internal fixation (ORIF) procedure (2016) Right forearm (2 plates and [address]) H/O wisdom tooth extraction (03/2024) Family History Other No family history of adverse response to anesthesia Social History Smoking Status: Never smoker Second Hand Exposure: No; Do You Dip or Chew Tobacco: No; Hx Alcohol Use: No Hx Substance Use: No Preferred Language: [place] Communication Ability: Effective Labor Relations Representative Required: No Beliefs That Will Affect Care: None marital status: Single Current Living Situation: Family Current Living Situation Comment: Pt lives with her brother Other Information That Helps Us Care for You: No Feels Safe at Home: Yes Safety Concerns: Feels Safe At This Time Assistive Devices: Glasses OB History primip Review of Systems All systems reviewed & are unremarkable except as noted in HPI & below Physical Exam Constitutional: WD/WN, vitals as above Eyes: PERRL, conjunctivae normal, anicteric sclerae Neck: trachea midline, no thyromegaly Respiratory: normal respiratory effort Cardiovascular: Rate/Rhythm: regular rate and regular rhythm Gastrointestinal (Abdomen): Inspection/Auscultation: abdomen normal to inspection Musculoskeletal: Extremities: extremities normal to inspection Skin: no rashes, warm and dry Neurologic: patellar DTR's 2+ bilat, sensation intact Psychiatric: A+Ox3, euthymic affect Genitourinary: no vaginal lesions, no adnexal mass OB Exam Abdomen: + fundal height and + vertex Manual OB Exam: + cervical dilation fingertip, + cervical effacement 50% and + station -2 OB Exam Monitor Tracing: + external FHT monitor used, + external uterine monitor used, + category I and + normal FHT variability exam by nurse since patient would not allow me to examine her. Will start with Cervidil for ripening of cervix. Results & Data Vital Signs (Past 12 Hours) Vital Signs Temp Pulse Resp BP O2 Del Method 08/30/25 09:41 91 H 113/72 08/30/25 08:41 90 115/73 08/30/25 07:50 36.8 C 105 H 18 123/83 Room Air 08/30/25 07:41 105 H 123/83 Laboratory Results 08/30/25 08:21 WBC 10.45 RBC 4.41 Hgb 11.3 L Hct 34.3 L MCV 77.8 L MCH 25.6 MCHC 32.9 RDW Std Deviation 45.9 RDW Coeff of Melissa 16.2 H Plt Count 146 MPV 11.0 Treponema pallidum Ab Negative Blood Type A Positive Antibody Screen NEGATIVE Code Status & VTE Plan VTE Prophylaxis Plan VTE Prophylaxis will be ordered: No Monitoring External Monitor Cat 1 (1) Post-dates Post-term type: 40-42 weeks gestation Qualified Code(s): O48.0 - Post-term
[2025-08-30] MEDS: DINOPROSTONE 10 MG INSERT PV ONE (11:10)
--- NOTE | 2025-08-30 11:17 | Labor Progress Brief Note ---
Date of Service August 30, 2025 Assessment & Plan Admission and Anticipated Discharge Date Admission Date: August 30, 2025 Physical Exam Genitourinary: OB Exam Monitor Tracing: + external FHT monitor used, + external uterine monitor used, + category I and + normal FHT variability Cervidil 10 mg placed vaginally Results & Data Vital Signs (Past 12 Hours) Vital Signs Temp Pulse Resp BP O2 Del Method 08/30/25 10:50 91 H 121/74 08/30/25 09:41 91 H 113/72 08/30/25 08:41 90 115/73 08/30/25 07:50 36.8 C 105 H 18 123/83 Room Air 08/30/25 07:41 105 H 123/83
[2025-08-30] MEDS: LACTATED RINGER'S 1,000 ML IV PRN (16:03)
[2025-08-30] MEDS ORDERED: BUTORPHANOL TARTRATE 1 MG/ML VIAL IV PRN (18:42)
[2025-08-31] MEDS: miSOPROStoL 50 MCG TAB PO SCH (00:10)
[2025-08-31] MEDS ORDERED: LIDOCAINE 2%/EPINEPHRINE 1:200,000 20 ML PF ONE ×2 (01:18→15:37)
[2025-08-31] MEDS ORDERED: NALOXONE HCL 1 MG in SODIUM CHLORIDE 0.9% 1,000 ML IV PRN (01:45)
[2025-08-31] MEDS ORDERED: ROPIVACAINE 0.5% PF 5 MG/ML 20 ML VIAL EPI PRN (01:45)
[2025-08-31] MEDS ORDERED: diphenhydrAMINE 50 MG/ML VIAL IV PRN ×2 (01:45→16:58)
[2025-08-31] MEDS ORDERED: LIDOCAINE 2% MPF LOCAL 5 ML VIAL EPI PRN (01:45)
[2025-08-31] MEDS ORDERED: LIDOCAINE 2%/EPINEPHRINE 1:200,000 20 ML PF EPI STA (01:45)
[2025-08-31] MEDS ORDERED: BUPIVACAINE 0.25% PF 30 ML VIAL EPI PRN (01:45)
[2025-08-31] MEDS ORDERED: NALOXONE HCL 0.4 MG/1 ML VIAL/CARP IV PRN ×2 (01:45→17:00)
[2025-08-31] MEDS ORDERED: NALBUPHINE HCL INJ 10 MG/ML AMP IV PRN ×2 (01:45→16:58)
[2025-08-31] MEDS ORDERED: SODIUM CHLORIDE 0.9% PF INJ 10 ML VIAL EPI PRN (01:45)
--- NOTE | 2025-08-31 01:47 | Anesthesiology Consultation ---
Date of Service August 31, 2025 Assessment & Plan Chart Review Chart Review: Patient NOT seen in Pre Admission Testing and Acceptable Risk for Labor Epidural Consults Requested none ASA ASA2 Proposed Anesthesia Anesthesia Type: Labor Epidural Risk / Benefits Reviewed With: PT / POA / Parent / Guardian, Accepts Plan and Informed Consent Obtained History Height/Weight Height: 5 ft 4 in Weight: 102.512 kg Allergies Allergy/AdvReac Type Severity Reaction Status Date / Time Sulfa (Sulfonamide Allergy Unknown Unknown Verified 08/07/25 16:20 Antibiotics) latex AdvReac Rash Verified 08/07/25 16:21 Medications Home Medications Medication Instructions Recorded Confirmed Last Taken prenat.vits,riana,her-qeos-twbjz 1 tab PO DAILY 08/07/25 08/30/25 08/29/25 18:30 vitamin S08-toifj acid 2.5 mg-0.8 1 tab PO DAILY 08/07/25 08/30/25 08/29/25 18:30 mg oral sublingual tablet Active Medications Generic Name Dose Route Start Last Admin Trade Name Freq PRN Reason Stop Dose Admin Lactated Ringer's 1,000 mls @ 125 mls/hr 08/30/25 08:01 08/31/25 01:36 Lr IV 09/01/25 08:00 999 mls/hr .Q8H PRN Administration L&D Protocol Protocol Misoprostol 50 mcg 08/31/25 00:00 08/31/25 00:10 Misoprostol 50 Mcg Tab PO 09/30/25 00:00 Not Given Q4 BRADLY NPO Date Last Intake of Fluids: 08/31/25 Time Last Intake of Fluids: 01:00 Date Last Intake of Solids: 08/30/25 Time Last Intake of Solids: 18:30 Past Medical History Medical History Seasonal allergies Closed fracture of ankle (08/29/24) Mechanical fall down wet stepts, no head traume Exercise / Class Metabolic Activity 1 > 8 Run/Swim/Ski/Tennis Past Family History Family History Other No family history of adverse response to anesthesia Past Surgical History Surgical History History of anesthesia reaction (2011) Aspirated on vomit while having multiple baby teeth removed > "they stuck a tube down my throat and then I woke up in a hospital" History of tooth extraction (2011) Multiple baby teeth extraction History of open reduction and internal fixation (ORIF) procedure (2016) Right forearm (2 plates and [address]) H/O wisdom tooth extraction (03/2024) Past Anesthesia History No Hx of Anesthesia Complications and No Family Hx of Anesthesia Complications History of PONV No Hx of PONV and No Hx of Motion Sickness Social History Smoking Status: Never smoker Do You Dip or Chew Tobacco: No Hx Alcohol Use: No Alcohol Intake Frequency Comment: Pt states prior to she had "the very occasional drink" Hx Substance Use: No substance use type: does not use Review of Systems ROS Unobtainable: All systems reviewed & are unremarkable except as noted in HPI & below Physical Exam Vital Signs Last Vital Signs Temp 37.0 C 08/30/25 22:14 Pulse 77 08/31/25 01:02 Resp 16 08/30/25 22:14 BP 115/56 L 08/31/25 01:02 O2 Del Method Room Air 08/30/25 07:50 ENMT Mouth: no TMJ abnormality Thyromental Distance: > or= 3.5 Finger Breadths Mallampati Class: II Neck normal visual inspection and trachea midline; neck extension not limited Respiratory normal respiratory effort Auscultation: lungs clear to auscultation bilaterally Cardiovascular Rate/Rhythm: regular rate and regular rhythm Heart Sounds: no murmur Musculoskeletal Spine: normal cervical ROM Extremities: full ROM of extremities Neurologic moves all extremities Psychiatric Orientation: alert and oriented x 3 Testing Laboratory Results 08/30/25 08:21 Blood Type A Positive 08/30/25 08:21 Antibody Screen NEGATIVE 08/30/25 08:21
[2025-08-31] MEDS: fentANYL 2 MCG/ML BUPIVacaine 0.125%-NSS 100ML BAG ONE (02:08)
[2025-08-31] MEDS: BUPIVACAINE 0.25% PF 30 ML VIAL EPI STA (02:15)
[2025-08-31] MEDS: SODIUM CHLORIDE 0.9% PF INJ 10 ML VIAL EPI STA (02:17)
[2025-08-31] MEDS: SODIUM CHLORIDE 0.9% PF INJ 10 ML VIAL ONE (08:15)
[2025-08-31] MEDS: BUPIVACAINE 0.25% PF 30 ML VIAL ONE (08:15)
--- NOTE | 2025-08-31 10:05 | Obstetrical Progress Note ---
Date of Service August 31, 2025 Assessment & Plan Admission and Anticipated Discharge Date Admission Date: August 30, 2025 Subjective patient seen and examined. She was admitted yesterday by Dr. Vizcaino for induction of labor for postdates. She has received a dose of vaginal Cervidil Yesterday and then 1 dose of p.o. Cytotec at 3 AM. she became painful and received epidural for pain. She has been comfortable with no complaints. She feels baby moves off and on. I reviewed her records and medical history with her. Vaginal exam cervix is 2 cm dilated, 70% effaced, head is high ballotable with a tight bag, tried stimulate the head and heart rate increased from 130s to 145, heart rate had been between category 1 to category 2 responded to IV fluid hydration, I performed bedside ultrasound, vertex presentation confirmed, facing up, indicating occipitoposterior, EFW is, although limited due to BMI and edema of abdominal skin, 3440 g, placenta anterior, OFELIA is 8.5 cm, Discussed the findings and recommended oxytocin challenge test for being testing, if baby tolerates oxytocin and contractions we will continue with induction if not then we will proceed with primary , Patient understands all and agrees with plan, Continue to monitor closely. Results & Data Vital Signs (Past 12 Hours) Vital Signs Temp Pulse Resp BP Pulse Ox O2 Del Method 08/31/25 10:00 95 H 118/83 08/31/25 09:56 80 94 08/31/25 09:51 80 95 08/31/25 09:46 94 H 96 08/31/25 09:45 92 H 112/73 08/31/25 09:41 89 97 08/31/25 09:36 71 94 08/31/25 09:31 73 94 08/31/25 09:30 76 106/57 L 08/31/25 09:26 71 94 08/31/25 09:21 74 94 08/31/25 09:16 69 94 08/31/25 09:15 69 105/57 L 08/31/25 09:11 75 94 08/31/25 09:06 70 94 08/31/25 09:01 72 16 94 08/31/25 09:00 71 104/57 L 08/31/25 08:56 75 93 08/31/25 08:51 72 94 08/31/25 08:46 78 94 08/31/25 08:45 75 107/58 L 08/31/25 08:41 69 94 08/31/25 08:36 74 95 08/31/25 08:31 72 94 08/31/25 08:30 72 103/58 L 08/31/25 08:26 71 94 08/31/25 08:21 68 94 08/31/25 08:16 71 94 08/31/25 08:15 69 108/60 08/31/25 08:11 75 94 08/31/25 08:06 70 93 08/31/25 08:01 69 94 08/31/25 08:00 69 16 108/59 L 08/31/25 07:56 72 94 08/31/25 07:51 69 93 08/31/25 07:46 70 106/62 94 08/31/25 07:41 68 94 08/31/25 07:36 72 94 08/31/25 07:31 71 95 08/31/25 07:30 71 107/61 08/31/25 07:26 72 96 08/31/25 07:24 Room Air 08/31/25 07:21 77 95 08/31/25 07:16 76 117/64 96 08/31/25 07:11 78 95 08/31/25 07:06 81 96 08/31/25 07:03 18 08/31/25 07:03 37.1 C 18 08/31/25 07:01 84 96 08/31/25 07:00 79 123/81 08/31/25 06:56 73 95 08/31/25 06:51 74 95 08/31/25 06:46 74 96 08/31/25 06:45 84 117/69 08/31/25 06:41 83 95 08/31/25 06:36 83 94 08/31/25 06:32 80 128/74 08/31/25 06:31 79 92 08/31/25 06:26 86 95 08/31/25 06:21 88 95 08/31/25 06:16 86 96 08/31/25 06:15 37.0 C 75 16 104/63 08/31/25 06:11 74 93 08/31/25 06:06 73 94 08/31/25 06:01 73 93 08/31/25 06:00 75 94/52 L 08/31/25 05:56 71 94 08/31/25 05:51 75 93 08/31/25 05:46 95 08/31/25 05:46 75 08/31/25 05:46 71 92/54 L 08/31/25 05:41 81 93 08/31/25 05:36 74 94 08/31/25 05:31 94 08/31/25 05:31 75 08/31/25 05:31 70 93/53 L 08/31/25 05:26 74 94 08/31/25 05:21 71 94 08/31/25 05:16 72 94 08/31/25 05:15 71 97/56 L 08/31/25 05:11 66 94 08/31/25 05:06 68 93 08/31/25 05:02 70 100/57 L 08/31/25 05:01 67 94 08/31/25 04:56 68 94 08/31/25 04:51 69 94 08/31/25 04:46 71 95 08/31/25 04:45 64 103/58 L 08/31/25 04:41 68 94 08/31/25 04:36 75 96 08/31/25 04:31 69 95 08/31/25 04:30 70 102/61 08/31/25 04:26 66 94 08/31/25 04:21 67 95 08/31/25 04:16 67 94 08/31/25 04:15 63 99/56 L 08/31/25 04:12 75 100/64 08/31/25 04:11 76 95 08/31/25 04:06 84 95 08/31/25 04:01 69 93 08/31/25 04:00 72 97/55 L 08/31/25 03:56 66 93 08/31/25 03:51 68 93 08/31/25 03:46 68 93 08/31/25 03:45 70 102/58 L 08/31/25 03:41 68 93 08/31/25 03:36 70 93 08/31/25 03:31 69 93 08/31/25 03:30 69 96/53 L 92 08/31/25 03:26 69 93 08/31/25 03:21 65 93 08/31/25 03:16 69 94 08/31/25 03:15 74 98/57 L 08/31/25 03:11 76 96 08/31/25 03:06 85 95 08/31/25 03:01 73 93 08/31/25 03:00 36.8 C 71 16 100/55 L 08/31/25 02:56 73 94 08/31/25 02:51 71 93 08/31/25 02:46 76 93 08/31/25 02:45 75 103/58 L 94 08/31/25 02:43 73 124/73 08/31/25 02:41 73 95 08/31/25 02:39 78 94 08/31/25 02:36 83 95 08/31/25 02:31 104 H 96 08/31/25 02:26 92 H 95 08/31/25 02:25 86 94 08/31/25 02:21 93 H 95 08/31/25 02:20 93 H 94 08/31/25 02:16 91 H 95 08/31/25 02:11 96 H 120/69 95 08/31/25 02:08 95 H 95 08/31/25 02:07 91 H 94 08/31/25 02:06 86 121/71 08/31/25 02:04 88 123/73 08/31/25 02:03 90 96 08/31/25 01:58 102 H 96 08/31/25 01:53 96 H 97 08/31/25 01:02 77 115/56 L 08/31/25 00:50 16 08/31/25 00:50 37.0 C 16 08/30/25 22:14 16 08/30/25 22:14 37.0 C 08/30/25 22:12 74 120/81
[2025-08-31] MEDS: OXYTOCIN 30 UNITS/NSS 30 UNITS/500 ML BAG IV PRN (10:18)
[2025-08-31] MEDS: fentANYL 2 MCG/ML BUPIVacaine 0.125%-NSS 100ML BAG EPI PRN (11:02)
[2025-08-31] MEDS ORDERED: LACTATED RINGER'S 1,000 ML IV SCH ×3 (15:30→17:45)
--- NOTE | 2025-08-31 15:30 | Obstetrical Progress Note ---
Date of Service August 31, 2025 Assessment & Plan Admission and Anticipated Discharge Date Admission Date: August 30, 2025 Subjective Patient has been comfortable. heart rate tolerated the Pitocin initially, recently had an episode of deceleration on the patient's right side, recovered on the patient left side having mild late decelerations with some of the contractions, category 2 strip. cervix is 2 to 3 cm, 80% effaced, head is -3 with a tight bulging bag, Discussed the findings category 2 strip removed from delivery recommended primary . Patient understands C section is a major surgery, with risks including but not limited to bleeding , infection, injury to surrounding organs like bowels, bladder, ureters, adhesions, scarring, wound infection, blood cloths in legs/ lungs, longer recovery. All questions were answered. She signed an informed consent. Results & Data Vital Signs (Past 12 Hours) Vital Signs Temp Pulse Resp BP Pulse Ox O2 Del Method 08/31/25 15:26 83 95 08/31/25 15:21 89 96 08/31/25 15:16 104 H 97 08/31/25 15:15 71 113/65 08/31/25 15:11 71 93 08/31/25 15:06 68 93 08/31/25 15:01 37.5 C 68 18 93 08/31/25 15:00 67 116/68 08/31/25 14:56 69 94 08/31/25 14:51 74 95 08/31/25 14:47 70 118/74 08/31/25 14:46 71 94 08/31/25 14:43 78 92 08/31/25 14:41 73 93 08/31/25 14:36 72 92 08/31/25 14:35 75 92 08/31/25 14:31 93 H 95 08/31/25 14:30 75 121/76 08/31/25 14:26 73 93 08/31/25 14:21 76 93 08/31/25 14:16 73 94 08/31/25 14:15 74 124/79 08/31/25 14:11 75 94 08/31/25 14:06 75 93 08/31/25 14:01 18 08/31/25 14:01 18 08/31/25 14:01 94 08/31/25 14:01 77 08/31/25 14:01 71 120/70 08/31/25 13:56 74 93 08/31/25 13:51 78 93 08/31/25 13:46 85 94 08/31/25 13:45 82 120/72 08/31/25 13:41 80 93 08/31/25 13:36 79 95 08/31/25 13:31 94 08/31/25 13:31 89 08/31/25 13:31 75 119/71 08/31/25 13:27 74 92 08/31/25 13:26 70 93 08/31/25 13:21 71 96 08/31/25 13:16 81 95 08/31/25 13:15 76 121/73 08/31/25 13:11 80 96 08/31/25 13:06 77 95 08/31/25 13:01 79 95 08/31/25 13:00 75 20 119/73 08/31/25 12:56 87 95 08/31/25 12:51 84 96 08/31/25 12:46 94 08/31/25 12:46 80 08/31/25 12:46 82 120/76 08/31/25 12:41 78 95 08/31/25 12:36 71 93 08/31/25 12:31 79 95 08/31/25 12:30 74 118/73 08/31/25 12:26 73 93 08/31/25 12:21 68 93 08/31/25 12:19 66 92 08/31/25 12:16 79 94 08/31/25 12:15 65 111/64 08/31/25 12:13 65 92 08/31/25 12:11 73 94 08/31/25 12:06 69 93 08/31/25 12:01 67 18 94 08/31/25 12:00 74 116/67 08/31/25 11:56 77 95 08/31/25 11:51 75 93 08/31/25 11:46 94 08/31/25 11:46 73 08/31/25 11:46 71 128/68 08/31/25 11:41 79 94 08/31/25 11:36 79 95 08/31/25 11:31 82 95 08/31/25 11:30 77 128/79 08/31/25 11:26 79 96 08/31/25 11:21 79 95 08/31/25 11:16 81 94 08/31/25 11:15 80 109/65 08/31/25 11:11 78 94 08/31/25 11:06 79 95 08/31/25 11:02 18 08/31/25 11:02 36.8 C 18 08/31/25 11:01 89 96 08/31/25 11:00 85 116/69 08/31/25 10:56 91 H 95 08/31/25 10:51 79 94 08/31/25 10:46 78 94 08/31/25 10:45 76 115/70 08/31/25 10:41 77 95 08/31/25 10:36 83 95 08/31/25 10:31 88 95 08/31/25 10:30 86 113/71 08/31/25 10:26 79 95 08/31/25 10:21 89 95 08/31/25 10:16 91 H 96 08/31/25 10:15 96 H 120/77 08/31/25 10:11 83 94 08/31/25 10:06 84 95 08/31/25 10:01 98 H 20 95 08/31/25 10:00 95 H 118/83 08/31/25 09:56 80 94 08/31/25 09:51 80 95 08/31/25 09:46 94 H 96 08/31/25 09:45 92 H 112/73 08/31/25 09:41 89 97 08/31/25 09:36 71 94 08/31/25 09:31 73 94 08/31/25 09:30 76 106/57 L 08/31/25 09:26 71 94 08/31/25 09:21 74 94 08/31/25 09:16 69 94 08/31/25 09:15 69 105/57 L 08/31/25 09:11 75 94 08/31/25 09:06 70 94 08/31/25 09:01 72 16 94 08/31/25 09:00 71 104/57 L 08/31/25 08:56 75 93 08/31/25 08:51 72 94 08/31/25 08:46 78 94 08/31/25 08:45 75 107/58 L 08/31/25 08:41 69 94 08/31/25 08:36 74 95 08/31/25 08:31 72 94 08/31/25 08:30 72 103/58 L 08/31/25 08:26 71 94 08/31/25 08:21 68 94 08/31/25 08:16 71 94 08/31/25 08:15 69 108/60 08/31/25 08:11 75 94 08/31/25 08:06 70 93 08/31/25 08:01 69 94 08/31/25 08:00 69 16 108/59 L 08/31/25 07:56 72 94 08/31/25 07:51 69 93 08/31/25 07:46 70 106/62 94 08/31/25 07:41 68 94 08/31/25 07:36 72 94 08/31/25 07:31 71 95 08/31/25 07:30 71 107/61 08/31/25 07:26 72 96 08/31/25 07:24 Room Air 08/31/25 07:21 77 95 08/31/25 07:16 76 117/64 96 08/31/25 07:11 78 95 08/31/25 07:06 81 96 08/31/25 07:03 18 08/31/25 07:03 37.1 C 18 08/31/25 07:01 84 96 08/31/25 07:00 79 123/81 08/31/25 06:56 73 95 08/31/25 06:51 74 95 08/31/25 06:46 74 96 08/31/25 06:45 84 117/69 08/31/25 06:41 83 95 08/31/25 06:36 83 94 08/31/25 06:32 80 128/74 08/31/25 06:31 79 92 08/31/25 06:26 86 95 08/31/25 06:21 88 95 08/31/25 06:16 86 96 08/31/25 06:15 37.0 C 75 16 104/63 08/31/25 06:11 74 93 08/31/25 06:06 73 94 08/31/25 06:01 73 93 08/31/25 06:00 75 94/52 L 08/31/25 05:56 71 94 08/31/25 05:51 75 93 08/31/25 05:46 95 08/31/25 05:46 75 08/31/25 05:46 71 92/54 L 08/31/25 05:41 81 93 08/31/25 05:36 74 94 08/31/25 05:31 94 08/31/25 05:31 75 08/31/25 05:31 70 93/53 L 08/31/25 05:26 74 94 08/31/25 05:21 71 94 08/31/25 05:16 72 94 08/31/25 05:15 71 97/56 L 08/31/25 05:11 66 94 08/31/25 05:06 68 93 08/31/25 05:02 70 100/57 L 08/31/25 05:01 67 94 08/31/25 04:56 68 94 08/31/25 04:51 69 94 08/31/25 04:46 71 95 08/31/25 04:45 64 103/58 L 08/31/25 04:41 68 94 08/31/25 04:36 75 96 08/31/25 04:31 69 95 08/31/25 04:30 70 102/61 08/31/25 04:26 66 94 08/31/25 04:21 67 95 08/31/25 04:16 67 94 08/31/25 04:15 63 99/56 L 08/31/25 04:12 75 100/64 08/31/25 04:11 76 95 08/31/25 04:06 84 95 08/31/25 04:01 69 93 08/31/25 04:00 72 97/55 L 08/31/25 03:56 66 93 08/31/25 03:51 68 93 08/31/25 03:46 68 93 08/31/25 03:45 70 102/58 L 08/31/25 03:41 68 93 08/31/25 03:36 70 93 08/31/25 03:31 69 93 08/31/25 03:30 69 96/53 L 92
[2025-08-31] MEDS ORDERED: ACETAMINOPHEN SUSP 325 MG/10.15 ML UDC PO STA (15:33)
[2025-08-31] MEDS ORDERED: PHENYLEPHRINE HCL 25 MG/250 ML NSS IV ONE (15:35)
[2025-08-31] MEDS ORDERED: ONDANSETRON INJ 2 MG/ML 2 ML VIAL ONE (15:35)
[2025-08-31] MEDS ORDERED: MoRPHine SULFATE PF 1 MG/ML 10 ML AMP/VIAL ONE (15:35)
[2025-08-31] MEDS ORDERED: DEXAMETHASONE SOD INJ 4 MG/ML VIAL ONE (15:35)
[2025-08-31] MEDS ORDERED: PHENYLEPHRINE 100MCG/ML 5ML SYR ONE (15:35)
[2025-08-31] MEDS: ceFAZolin 3000MG 3,000 MG/72.5 ML BAG IV SCH (15:48)
[2025-08-31] MEDS: ACETAMINOPHEN SUSP 325 MG/10.15 ML UDC PO STA (15:49)
[2025-08-31] MEDS: AZITHROMYCIN 500 MG/255 ML BAG IV SCH (16:20)
[2025-08-31] MEDS: CITRIC ACID/SODIUM CITRATE 15 ML UDC ONE (16:48)
[2025-08-31] MEDS ORDERED: OXYTOCIN 10 UNITS/ML VIAL ONE (16:53)
[2025-08-31] MEDS ORDERED: ONDANSETRON INJ 2 MG/ML 2 ML VIAL IV PRN (16:58)
[2025-08-31] MEDS ORDERED: HYDROmorphone INJ 0.5 MG/0.5 ML SYR IV PRN (16:58)
[2025-08-31] MEDS ORDERED: MoRPHine SULFATE PF 1 MG/ML 10 ML AMP/VIAL EPI ONE (16:58)
[2025-08-31] MEDS ORDERED: PROMETHAZINE 6.25 MG/50.25 ML BAG IV PRN (16:58)
[2025-08-31] MEDS ORDERED: LACTATED RINGER'S 500 ML IV PRN (16:58)
[2025-08-31] MEDS ORDERED: NO NARCOTICS OR SEDATIVES SCH (17:00)
[2025-08-31] MEDS ORDERED: DC INTRASPINAL MORPHINE SCH (17:00)
[2025-08-31] MEDS ORDERED: SODIUM CHLORIDE 0.9% 1,000 ML IV SCH (17:00)
[2025-08-31] MEDS ORDERED: MEASLES, MUMPS & RUBELLA VIRUS VACCINE (MMR) 0.5ML VIAL SQ ONE (17:32)
[2025-08-31] MEDS ORDERED: MAGNESIUM HYDROXIDE SUSP 30 ML UDC PO PRN (17:32)
[2025-08-31] MEDS ORDERED: BENZOCAINE 20% SPRY 85 APPLN/85 GM CAN EXT PRN (17:32)
[2025-08-31] MEDS ORDERED: SENNA 8.6 MG TAB PO PRN (17:32)
[2025-08-31] MEDS ORDERED: HYDROCORTISONE ACETATE 25 MG SUPP PR PRN (17:32)
[2025-08-31] MEDS ORDERED: DIPHTHER/TETAN/PERTUS Vaccine (Tdap, Adol/Adult) 0.5mL IM ONE (17:32)
[2025-08-31] MEDS ORDERED: CALCIUM CARBONATE 500 MG CHEWABLE TAB PO PRN (17:32)
--- NOTE | 2025-08-31 17:47 | Operative Report ---
Post Operative Report Pre & Post Diagnosis Operation Date: 08/31/25 15:30 Pre-Op Diagnosis: 1. Catergory II Strip 2. Remote from Delivery Post-Op Diagnosis: Same I identified the patient and participated in the time-out.: Yes Procedure Operation Date: 08/31/25 15:30 Actual Procedures p Section in LD; Primary Lower Uterine Transverse Section for the of a live boy at 1649. (Bilateral) - Selma Block MD Surgeon Selma Block MD Inseam Leveler Cata Armando RN Quantitative Blood Loss (QBL) 578 ml Findings Consistent with Post-Op Diagnosis Baby was a viable male delivered at 1440 9 PM and cephalic presentation, Apgars 8/9 weight was 3490 g, Maternal findings, normal uterus fallopian tubes and ovaries Specimens placenta, cord Drains Galarza catheter drained 200 mL of clear urine Anesthesia Type Labor Epidural Complications none Indications patient is a 25-year-old G1, P0 at 40 weeks and 3 days of gestation who was admitted on August 30 for induction of labor for postdates. her cervix was closed and she has received Cervidil and Cytotec for cervical ripening. heart rate was between category 1 to category 2 with irregular co ntractions. On August 31 morning her cervix was 2 cm, 70% -4, decision was made to proceed with oxytocin challenge test for wellbeing. heart rate was mostly category 1 Initially and then followed by episodes of decelerations and minimal variability, her cervix and station of the head has not changed. Decision was made to proceed with primary due to category 2 strip and remote from delivery. she understood risks and benefits, signed an informed consent. Description of Procedure Patient was taken to operating room where a spinal anesthesia was given without difficulty. She was placed in dorsal supine position with a leftward tilt. She was prepared and draped in usual sterile fashion. A financial skin incision was made and carried through to the underlying layer of fascia with the Bovie. Fascia was incised in the midline and incision was extended laterally with the help of Thakkar scissors. Then the upper aspect of the fascial incision was grasped with 2 Yazan clamps elevated the underlying rectus muscles were dissected off sharply with Thakkar scissors. Same thing was done on the lower incision. Then the muscles were in the midline, peritoneum was identified grasped with 2 pickups and entered sharply with Metzenbaum scissors. Peritoneal incision was extended superior and inferiorly with good visualization of the bladder. The bladder blade was inserted. Vesicouterine peritoneum was identified, grasped with pickups and entered sharply with Metzenbaum scissors, bladder flap was created digitally and bladder blade was reinserted. Uterus was incised in transverse fashion, incision was extended laterally, membranes were ruptured and light meconium stained fluid was obtained. there wa s fingers of the baby and loops of cord around the head which were reduced gently towards the uterus then the baby's head was delivered without difficulty, followed by shoulders and body with minimal traction without difficulty. Mouth and nose were suctioned there was dried on the field he was vigorously crying and moving. The cord was clamped times and cut at 1 minute delay and then the was handed off to the pediatric team. Then the placenta was delivered manually as intact and complete. Uterus was externalized and cleared of all clots and debris's. Uterine incision was repaired with 0 Vicryl in a running locked fashion, second umbricating layer was placed with the same suture in running locked fashion. Excellent hemostasis achieved. Cul-de-sac and the pelvis was irrigated with warm normal saline and suctioned. Incision was checked of anesthetic again. Uterus was returned to the abdomen, parietal peritoneum was reapproximated with 3-0 Vicryl in a running fashion and the muscles were reapproximated in the same suture in a running fashion. All of the fascia and rectus muscles were hemostatic. Rectus fascia was reapproximated with 0 Vicryl starting from both columns meeting in the midline. Subcuticular fat tissue was brought together with 2-0 Vicryl in a running fashion, skin was closed with 4-0 Monocryl in a subcuticular cuticular fashion. The mom and baby tolerated procedure well. Sponge needle instrument count was correct x3. she was given 3 g of cefazolin before and 500 mg of azithromycin during surgery. No complications happened, I was present during whole procedure. My payroll assistant was needed for retraction, hemostasis and aid during delivery of infant I attest to the content of the Intraoperative Record and any orders documented therein. Any exceptions are noted below.
--- NOTE | 2025-08-31 17:52 | Anesthesiology Progress Note ---
Date of Service August 31, 2025 Anesthesia Post Procedure Vital Signs Vital Signs: Temp Pulse Resp BP Pulse Ox O2 Del Method 08/31/25 17:50 78 102/58 L 08/31/25 17:47 80 93 08/31/25 17:46 79 94 08/31/25 17:41 93 08/31/25 17:41 72 08/31/25 17:41 69 92 08/31/25 17:40 74 130/81 08/31/25 16:23 84 95 08/31/25 16:16 90 94 08/31/25 16:15 92 H 122/78 08/31/25 16:11 92 H 95 08/31/25 16:06 89 94 08/31/25 16:01 101 H 95 08/31/25 16:00 101 H 127/83 08/31/25 15:56 143 H 96 08/31/25 15:51 92 H 95 08/31/25 15:46 82 94 08/31/25 15:45 89 122/74 08/31/25 15:41 80 95 08/31/25 15:36 82 95 08/31/25 15:31 95 08/31/25 15:31 87 08/31/25 15:31 87 123/76 08/31/25 15:26 83 95 08/31/25 15:21 89 96 08/31/25 15:16 104 H 97 08/31/25 15:15 71 113/65 08/31/25 15:11 71 93 08/31/25 15:06 68 93 08/31/25 15:01 37.5 C 68 18 93 08/31/25 15:00 67 116/68 08/31/25 14:56 69 94 08/31/25 14:51 74 95 08/31/25 14:47 70 118/74 08/31/25 14:46 71 94 08/31/25 14:43 78 92 08/31/25 14:41 73 93 08/31/25 14:36 72 92 08/31/25 14:35 75 92 08/31/25 14:31 93 H 95 08/31/25 14:30 75 121/76 08/31/25 14:26 73 93 08/31/25 14:21 76 93 08/31/25 14:16 73 94 08/31/25 14:15 74 124/79 08/31/25 14:11 75 94 08/31/25 14:06 75 93 08/31/25 14:01 18 08/31/25 14:01 18 08/31/25 14:01 94 08/31/25 14:01 77 08/31/25 14:01 71 120/70 08/31/25 13:56 74 93 08/31/25 13:51 78 93 08/31/25 13:46 85 94 08/31/25 13:45 82 120/72 08/31/25 13:41 80 93 08/31/25 13:36 79 95 08/31/25 13:31 94 08/31/25 13:31 89 08/31/25 13:31 75 119/71 08/31/25 13:27 74 92 08/31/25 13:26 70 93 08/31/25 13:21 71 96 08/31/25 13:16 81 95 08/31/25 13:15 76 121/73 08/31/25 13:11 80 96 08/31/25 13:06 77 95 08/31/25 13:01 79 95 08/31/25 13:00 75 20 119/73 08/31/25 12:56 87 95 08/31/25 12:51 84 96 08/31/25 12:46 94 08/31/25 12:46 80 08/31/25 12:46 82 120/76 08/31/25 12:41 78 95 08/31/25 12:36 71 93 08/31/25 12:31 79 95 08/31/25 12:30 74 118/73 08/31/25 12:26 73 93 08/31/25 12:21 68 93 08/31/25 12:19 66 92 08/31/25 12:16 79 94 08/31/25 12:15 65 111/64 08/31/25 12:13 65 92 08/31/25 12:11 73 94 08/31/25 12:06 69 93 08/31/25 12:01 67 18 94 08/31/25 12:00 74 116/67 08/31/25 11:56 77 95 08/31/25 11:51 75 93 08/31/25 11:46 94 08/31/25 11:46 73 08/31/25 11:46 71 128/68 08/31/25 11:41 79 94 08/31/25 11:36 79 95 08/31/25 11:31 82 95 08/31/25 11:30 77 128/79 08/31/25 11:26 79 96 08/31/25 11:21 79 95 08/31/25 11:16 81 94 08/31/25 11:15 80 109/65 08/31/25 11:11 78 94 08/31/25 11:06 79 95 08/31/25 11:02 18 08/31/25 11:02 36.8 C 18 08/31/25 11:01 89 96 08/31/25 11:00 85 116/69 08/31/25 10:56 91 H 95 08/31/25 10:51 79 94 08/31/25 10:46 78 94 08/31/25 10:45 76 115/70 08/31/25 10:41 77 95 08/31/25 10:36 83 95 08/31/25 10:31 88 95 08/31/25 10:30 86 113/71 08/31/25 10:26 79 95 08/31/25 10:21 89 95 08/31/25 10:16 91 H 96 08/31/25 10:15 96 H 120/77 08/31/25 10:11 83 94 08/31/25 10:06 84 95 08/31/25 10:01 98 H 20 95 08/31/25 10:00 95 H 118/83 08/31/25 09:56 80 94 08/31/25 09:51 80 95 08/31/25 09:46 94 H 96 08/31/25 09:45 92 H 112/73 08/31/25 09:41 89 97 08/31/25 09:36 71 94 08/31/25 09:31 73 94 08/31/25 09:30 76 106/57 L 08/31/25 09:26 71 94 08/31/25 09:21 74 94 08/31/25 09:16 69 94 08/31/25 09:15 69 105/57 L 08/31/25 09:11 75 94 08/31/25 09:06 70 94 08/31/25 09:01 72 16 94 08/31/25 09:00 71 104/57 L 08/31/25 08:56 75 93 08/31/25 08:51 72 94 08/31/25 08:46 78 94 08/31/25 08:45 75 107/58 L 08/31/25 08:41 69 94 08/31/25 08:36 74 95 08/31/25 08:31 72 94 08/31/25 08:30 72 103/58 L 08/31/25 08:26 71 94 08/31/25 08:21 68 94 08/31/25 08:16 71 94 08/31/25 08:15 69 108/60 08/31/25 08:11 75 94 08/31/25 08:06 70 93 08/31/25 08:01 69 94 08/31/25 08:00 69 16 108/59 L 08/31/25 07:56 72 94 08/31/25 07:51 69 93 08/31/25 07:46 70 106/62 94 08/31/25 07:41 68 94 08/31/25 07:36 72 94 08/31/25 07:31 71 95 08/31/25 07:30 71 107/61 08/31/25 07:26 72 96 08/31/25 07:24 Room Air 08/31/25 07:21 77 95 08/31/25 07:16 76 117/64 96 08/31/25 07:11 78 95 08/31/25 07:06 81 96 08/31/25 07:03 18 08/31/25 07:03 37.1 C 18 08/31/25 07:01 84 96 08/31/25 07:00 79 123/81 08/31/25 06:56 73 95 08/31/25 06:51 74 95 08/31/25 06:46 74 96 08/31/25 06:45 84 117/69 08/31/25 06:41 83 95 08/31/25 06:36 83 94 08/31/25 06:32 80 128/74 08/31/25 06:31 79 92 08/31/25 06:26 86 95 08/31/25 06:21 88 95 08/31/25 06:16 86 96 08/31/25 06:15 37.0 C 75 16 104/63 08/31/25 06:11 74 93 08/31/25 06:06 73 94 08/31/25 06:01 73 93 08/31/25 06:00 75 94/52 L 08/31/25 05:56 71 94 08/31/25 05:51 75 93 08/31/25 05:46 95 08/31/25 05:46 75 08/31/25 05:46 71 92/54 L 08/31/25 05:41 81 93 08/31/25 05:36 74 94 08/31/25 05:31 94 08/31/25 05:31 75 08/31/25 05:31 70 93/53 L 08/31/25 05:26 74 94 08/31/25 05:21 71 94 08/31/25 05:16 72 94 08/31/25 05:15 71 97/56 L 08/31/25 05:11 66 94 08/31/25 05:06 68 93 08/31/25 05:02 70 100/57 L 08/31/25 05:01 67 94 08/31/25 04:56 68 94 08/31/25 04:51 69 94 08/31/25 04:46 71 95 08/31/25 04:45 64 103/58 L 08/31/25 04:41 68 94 08/31/25 04:36 75 96 08/31/25 04:31 69 95 08/31/25 04:30 70 102/61 08/31/25 04:26 66 94 08/31/25 04:21 67 95 08/31/25 04:16 67 94 08/31/25 04:15 63 99/56 L 08/31/25 04:12 75 100/64 08/31/25 04:11 76 95 08/31/25 04:06 84 95 08/31/25 04:01 69 93 08/31/25 04:00 72 97/55 L 08/31/25 03:56 66 93 08/31/25 03:51 68 93 08/31/25 03:46 68 93 08/31/25 03:45 70 102/58 L 08/31/25 03:41 68 93 08/31/25 03:36 70 93 08/31/25 03:31 69 93 08/31/25 03:30 69 96/53 L 92 08/31/25 03:26 69 93 08/31/25 03:21 65 93 08/31/25 03:16 69 94 08/31/25 03:15 74 98/57 L 08/31/25 03:11 76 96 08/31/25 03:06 85 95 08/31/25 03:01 73 93 08/31/25 03:00 36.8 C 71 16 100/55 L 08/31/25 02:56 73 94 08/31/25 02:51 71 93 08/31/25 02:46 76 93 08/31/25 02:45 75 103/58 L 94 08/31/25 02:43 73 124/73 08/31/25 02:41 73 95 08/31/25 02:39 78 94 08/31/25 02:36 83 95 08/31/25 02:31 104 H 96 08/31/25 02:26 92 H 95 08/31/25 02:25 86 94 08/31/25 02:21 93 H 95 08/31/25 02:20 93 H 94 08/31/25 02:16 91 H 95 08/31/25 02:11 96 H 120/69 95 08/31/25 02:08 95 H 95 08/31/25 02:07 91 H 94 08/31/25 02:06 86 121/71 08/31/25 02:04 88 123/73 08/31/25 02:03 90 96 08/31/25 01:58 102 H 96 08/31/25 01:53 96 H 97 08/31/25 01:02 77 115/56 L 08/31/25 00:50 16 08/31/25 00:50 37.0 C 16 08/30/25 22:14 16 08/30/25 22:14 37.0 C 08/30/25 22:12 74 120/81 08/30/25 19:02 36.6 C 90 16 111/70 Transfer of Care Handoff Completed per policy Notes Mental Status: alert / awake / arousable Patient Amnestic to Procedure: No Nausea / Vomiting: adequately controlled Pain: adequately controlled Airway Patency, RR, SpO2: stable & adequate BP & HR: stable & adequate Hydration State: stable & adequate Neuraxial Anesthesia: was administered and sensory block is resolving Anesthetic Complications: no major complications apparent and Pt Satisfied with anesthetic care
--- NOTE | 2025-08-31 17:52 | Anesthesia Procedure Note ---
Date of Service August 31, 2025 Anesthesia Post Epidural Note Vital Signs Vital Signs: Temp Pulse Resp BP Pulse Ox O2 Del Method 37.5 C 78 18 102/58 L 93 Room Air 08/31/25 15:01 08/31/25 17:50 08/31/25 15:01 08/31/25 17:50 08/31/25 17:47 08/31/25 07:24 Notes Mental Status: alert / awake / arousable and participated in evaluation Patient Amnestic to Procedure: No Nausea / Vomiting: adequately controlled Pain: adequately controlled Airway Patency, RR, SpO2: stable & adequate BP & HR: stable & adequate Hydration State: stable & adequate Neuraxial Anesthesia: was administered and sensory block is resolving Anesthetic Complications: no major complications apparent and Pt Satisfied with anesthetic care Epidural: Removed without complications and With tip intact
[2025-08-31] MEDS: KETOROLAC 30 MG/ML VIAL IV SCH (17:58)
[2025-08-31] MEDS ORDERED: SODIUM CHLORIDE 0.9% 100 ML IV PRN (19:20)
[2025-08-31] MEDS: OXYTOCIN 20 UNITS/LR 1,002 ML IV SCH (20:23)
[2025-08-31] MEDS: DOCUSATE SODIUM 100 MG CAP PO SCH (21:47)
[2025-08-31] MEDS ORDERED: Nursing to Pharmacy Communication SCH (22:45)
[2025-08-31] MEDS ORDERED: ACETAMINOPHEN 325 MG TAB PO SCH (23:45)
[2025-08-31] MEDS ORDERED: SENNOSIDES 8.8 MG/5 ML UDC PO PRN (23:52)
[2025-08-31] MEDS: SIMETHICONE 80 MG CHEW PO SCH (23:54)
[2025-09-01] MEDS: ACETAMINOPHEN SUSP 325 MG/10.15 ML UDC PO SCH (00:17)
[2025-09-01] MEDS ORDERED: ACETAMINOPHEN 500 MG TAB PO SCH (06:00)
[2025-09-01] MEDS ORDERED: CITRIC ACID/SODIUM CITRATE 15 ML UDC PO SCH (06:00)
[2025-09-01] MEDS ORDERED: FERROUS SULFATE 325 MG TAB PO SCH (08:00)
[2025-09-01 08:20] LABS: Hematocrit (blood only) 29.3 % (37.0-47.0); Hemoglobin 9.5 g/dl (12.0-16.0); Immature Granulocytes # (auto) 0.11 K/uL (0.01-0.20); Immature Granulocytes % (auto) 1.0 %; Mean Corpuscular Hemoglobin 25.5 pg (25.0-34.0); Mean Corpuscular Volume 78.8 fL (80.0-100.0); Platelet Count 130 K/uL (130-400); RDW Standard Deviation 45.6 fL (36.4-46.3); Red Blood Count 3.72 M/uL (4.20-5.40); White Blood Count 11.04 K/ul (4.8-10.8)
[2025-09-01] MEDS: FERROUS SULFATE 325 MG/7.4 ML UDP PO SCH (08:52)
[2025-09-01] MEDS: DOCUSATE SODIUM SYRUP 100 MG/10 ML UDC PO SCH (08:52)
[2025-09-01] MEDS: PRENATAL VITAMIN 1 TAB PO SCH (08:53)
[2025-09-01] MEDS ORDERED: diphenhydrAMINE 50 MG/ML VIAL IV PRN (10:59)
[2025-09-01] MEDS ORDERED: ONDANSETRON INJ 2 MG/ML 2 ML VIAL IV PRN (10:59)
[2025-09-01] MEDS ORDERED: HYDROmorphone INJ 0.5 MG/0.5 ML SYR IV PRN (10:59)
[2025-09-01] MEDS ORDERED: diphenhydrAMINE Capsule 25 MG CAP PO PRN (10:59)
[2025-09-01] MEDS ORDERED: PROMETHAZINE 12.5 MG/50.5 ML BAG IV PRN (10:59)
--- NOTE | 2025-09-01 11:01 | Obstetrical Progress Note ---
Date of Service September 01, 2025 Assessment & Plan Admission and Anticipated Discharge Date Admission Date: August 30, 2025 Subjective abdomen soft and non tender bowel sounds normal passing gas bandage is clean and dry vaginal bleeding scant hgb 9.5 breast feeding Results & Data Vital Signs (Past 12 Hours) Vital Signs Temp Pulse Resp BP Pulse Ox O2 Del Method 09/01/25 06:25 18 99 09/01/25 05:00 16 97 09/01/25 04:00 36.4 C L 69 18 95/61 L 98 Room Air 09/01/25 04:00 18 98 09/01/25 03:00 18 98 09/01/25 02:00 16 96 09/01/25 01:00 16 97 09/01/25 00:30 36.7 C 71 16 105/71 98 Room Air 09/01/25 00:30 16 98 08/31/25 23:00 18 97
[2025-09-01] MEDS ORDERED: KETOROLAC 30 MG/ML VIAL IV PRN (17:32)
[2025-09-01] MEDS ORDERED: IBUPROFEN 600 MG TAB PO SCH (17:45)
[2025-09-01] MEDS: IBUPROFEN 200 MG/10 ML UDC PO SCH (18:25)
[2025-09-02 06:57] LABS: Hematocrit (blood only) 26.8 % (37.0-47.0); Hemoglobin 8.7 g/dl (12.0-16.0)
--- NOTE | 2025-09-02 09:18 | Obstetrical Progress Note ---
Date of Service September 02, 2025 Subjective Ambulation: ambulating normally Voiding: no voiding problems Passing Gas:: Yes Diet Tolerance:: regular diet Lochia:: Small Feeding Type:: breast feeding Current Pain Level(1-10): 0 doing well. had BMx2 Physical Exam Constitutional WD/WN, vitals as above Gastrointestinal (Abdomen) Inspection/Auscultation: abdomen normal to inspection incision c/d/i. abdomen soft and non-tender. fundus firm below U. Musculoskeletal Extremities: extremities normal to inspection Skin no rashes, warm and dry Neurologic patellar DTR's 2+ bilat, sensation intact Psychiatric A+Ox3, euthymic affect Results & Data Vital Signs (Past 12 Hours) Vital Signs Temp Pulse Resp BP Pulse Ox O2 Del Method 09/02/25 04:00 36.4 C L 85 18 111/77 99 Room Air Laboratory Results 08/30/25 09/01/25 09/02/25 08:21 07:54 06:09 WBC 10.45 11.04 H RBC 4.41 3.72 L Hgb 11.3 L 9.5 L 8.7 L Hct 34.3 L 29.3 L 26.8 L MCV 77.8 L 78.8 L MCH 25.6 25.5 MCHC 32.9 32.4 RDW Std Deviation 45.9 45.6 RDW Coeff of Melissa 16.2 H 16.0 H Plt Count 146 130 MPV 11.0 11.3 Immature Gran % (Auto) 1.0 Neut % (Auto) 79.5 Lymph % (Auto) 14.0 [place] % (Auto) 4.9 Eos % (Auto) 0.4 Baso % (Auto) 0.2 Neut # (Auto) 8.78 H Lymph # (Auto) 1.55 [place] # (Auto) 0.54 Eos # (Auto) 0.04 Baso # (Auto) 0.02 Immature Gran # (Auto) 0.11 Treponema pallidum Ab Negative Blood Type A Positive Antibody Screen NEGATIVE
[2025-09-02] MEDS ORDERED: IBUPROFEN 600 MG TAB PO PRN (17:32)
[2025-09-02] MEDS: IBUPROFEN 200 MG/10 ML UDC PO PRN (18:05)
[2025-09-02] MEDS ORDERED: ACETAMINOPHEN 325 MG TAB PO PRN (23:32)
[2025-09-03] MEDS: ACETAMINOPHEN SUSP 325 MG/10.15 ML UDC PO PRN (01:47)
[2025-09-03 08:12] VITALS: O2SAT 99
--- NOTE | 2025-09-03 09:48 | Obstetrical Progress Note ---
Date of Service September 03, 2025 Assessment & Plan Admission and Anticipated Discharge Date Admission Date: August 30, 2025 Subjective abdomen soft and non tender bowel sound present and normal bandage is clean and dry no calf tenderness ambulating well vaginal bleeding scant hgb 8.7 Results & Data Vital Signs (Past 12 Hours) Vital Signs Temp Pulse Pulse Resp BP Pulse Ox O2 Del Method 09/03/25 07:50 36.9 C 95 H 18 113/74 99 Room Air 09/03/25 04:59 36.7 C 85 16 115/79 98 Room Air 09/02/25 22:21 36.7 C 94 H 18 102/70 99 Room Air
[2025-09-03 23:58] VITALS: RESP 18
[2025-09-04 10:14] VITALS: BP 123/83; TEMP 97.3
--- NOTE | 2025-09-04 10:53 | Obstetrical Progress Note ---
Date of Service September 04, 2025 Assessment & Plan Admission and Anticipated Discharge Date Admission Date: August 30, 2025 Subjective abdomen soft and non tender bowel sounds normal passing gas incision is clean and dry vaginal bleeding scant hgb 8.7 Results & Data Vital Signs (Past 12 Hours) Vital Signs Temp Pulse Resp BP Pulse Ox O2 Del Method 09/04/25 09:00 36.3 C L 94 H 18 123/83 99 Room Air 09/04/25 01:15 36.5 C 89 18 114/76 99 Room Air
[2025-09-04 11:33] LABS: Hematocrit (blood only) 29.4 % (37.0-47.0); Hemoglobin 9.4 g/dl (12.0-16.0)
[2025-09-04 12:09] VITALS: PULSE 95
== END 2025-09-04 13:00 | disposition home or self-care (01) | DRG 788 ==
LOC: 4S1 07:32 → 4E2 08-31 20:52 → 4S3 09-02 08:45